=== PATIENT | male | born 1965 | race Caucasian/White ===

== ENCOUNTER 2024-02-01 16:01 | Outpatient (CLI) | payer SELFPAY ==
--- NOTE | ~2024-02-01 | XR_ITS ---
XR wrist RT min 3V DATE: 02/01/2024 16:24 INDICATION: Right wrist pain TECHNIQUE: 4 views COMPARISON: None FINDINGS: There is prominent narrowing at the radioscaphoid joint. There is suggestion of old fracture deformity of the triquetrum bone. No apparent recent fracture or dislocation. No periosteal reaction or bone destruction. No erosive change or chondrocalcinosis is no ximena. IMPRESSION: Prominent narrowing at the radial scaphoid joint Suggestion of old fracture deformity of the triquetrum Reviewed, dictated and finalized at location L.
== END 2024-02-01 16:02 ==
PROVIDERS: PCP Nurse Practitioner Family; Visit Provider Nurse Practitioner Family
DX: M25.531 Pain in right wrist (principal); E53.8 Deficiency of other specified B group vitamins; E55.9 Vitamin D deficiency, unspecified; Z12.11 Encounter for screening for malignant neoplasm of colon; Z68.35 Body mass index [BMI] 35.0-35.9, adult; E78.5 Hyperlipidemia, unspecified; K42.9 Umbilical hernia without obstruction or gangrene; E66.2 Morbid (severe) obesity with alveolar hypoventilation; E11.65 Type 2 diabetes mellitus with hyperglycemia; I10 Essential (primary) hypertension
CPT/HCPCS: 73110